=== PATIENT | female | born 1990 | race Caucasian/White ===

== ENCOUNTER 2019-05-29 15:53 | Inpatient (IN) | payer OTHER ==
[~2019-05-29] VITALS: Ht 157.5 cm; Wt 99.0 kg
[2019-05-29 16:16] VITALS: Ht 157.5 cm; Wt 99.0 kg
[2019-05-29 16:17] VITALS: BP 121/64; PULSE 87; RESP 20
[2019-05-29] MEDS ORDERED: PREN-93 PO (16:21)
[2019-05-29] MEDS: LACTATED RINGER'S 1,000 ML IV SCH ×2 (16:57→18:49)
--- NOTE | 2019-05-29 19:04 | TRIAGE ---
OB Triage Datetime Report Generated by CPN: 05/29/2019 19:04 Datetime: 05/29/2019 18:01 Maternal Assessment Level of Consciousness: Keenly Alert, Responsive DTR's/Clonus: DTRs 2+ Headache: Denies Blurred Vision: No Nausea/Vomiting: Denies RUQ Epigastric Pain: Denies Facial Edema: None Labor Evaluation Frequency: NONE Pattern: Normal: <= 5 Contractions in 10 Minutes Resting Tone [place]: Relaxed Heart Rate FHR Baseline Rate: 140 Monitor Mode: External US FHR Baseline Changes: No Baseline Change Variability: Moderate 6-25 bpm Accelerations: 15X15 Decelerations: None Category: Category I Pain Assessment Pain Scale: 3 Pain Presence: Constant Pain Type: Pressure Pain Location: Abdomen Pain Goal: 2 Datetime: 05/29/2019 16:58 Maternal Assessment Level of Consciousness: Keenly Alert, Responsive DTR's/Clonus: DTRs 2+ Headache: Denies Blurred Vision: No Nausea/Vomiting: Denies RUQ Epigastric Pain: Denies Facial Edema: None Labor Evaluation Frequency: NONE Pattern: Normal: <= 5 Contractions in 10 Minutes Resting Tone [place]: Relaxed Heart Rate FHR Baseline Rate: 150 Monitor Mode: External US FHR Baseline Changes: No Baseline Change Variability: Moderate 6-25 bpm Accelerations: 15X15 Decelerations: None Category: Category I Pain Assessment Pain Scale: 3 Pain Presence: Constant Pain Type: Pressure Pain Location: Abdomen Pain Goal: 1 Vaginal Exam Membrane Status: Intact Datetime: 05/29/2019 16:30 Maternal Assessment Level of Consciousness: Keenly Alert, Responsive DTR's/Clonus: DTRs 2+; No Clonus Headache: Denies Blurred Vision: No Respiratory Effort: Unlabored; Regular Rhythm; Equal Expansion Breath Sounds, Left: Clear and Equal Breath Sounds, Right: Clear and Equal Nausea/Vomiting: Denies RUQ Epigastric Pain: Denies Facial Edema: None Fall Risk Assessment History of Falling: (0) No Secondary Diagnosis: (0) No Ambulatory Aid: (0) Bedrest/Nurse Assist Gait: (0) Normal/Bedrest/Immobile Mental Status: (0) Oriented to Own Ability Datetime: 05/29/2019 16:08 Time of Arrival: 05/29/2019 15:50 EGA: 28.0 Arrived By: Ambulatory Arrived From: Home Chief Complaint: abd pain Movement: Decreased Contractions: Denies/Absent Rupture of Membranes: Denies Vaginal Bleeding: None Vaginal Discharge: Denies Recent Sexual Intercouse: Denies Abdominal Trauma: Not Applicable Patient Complaints: Contractions Provider Notified: dr galvin Initial Plan: efm,call dr galvin Datetime: 05/29/2019 16:07 Maternal Assessment Level of Consciousness: Keenly Alert, Responsive DTR's/Clonus: DTRs 2+ Headache: Denies Blurred Vision: No Nausea/Vomiting: Denies RUQ Epigastric Pain: Denies Facial Edema: None Labor Evaluation Frequency: none Pattern: Normal: <= 5 Contractions in 10 Minutes Resting Tone [place]: Relaxed Heart Rate FHR Baseline Rate: 150 Monitor Mode: External US FHR Baseline Changes: No Baseline Change Variability: Moderate 6-25 bpm Accelerations: 10X10 Decelerations: None Category: Category I Pain Assessment Pain Scale: 3 Pain Presence: Constant Pain Type: Pressure Pain Location: Abdomen Pain Goal: 1 Vaginal Exam Membrane Status: Intact Datetime: 05/29/2019 16:06 Maternal Assessment Level of Consciousness: Keenly Alert, Responsive DTR's/Clonus: DTRs 2+; No Clonus Headache: Denies Blurred Vision: No Respiratory Effort: Unlabored; Regular Rhythm; Equal Expansion Breath Sounds, Left: Clear and Equal Breath Sounds, Right: Clear and Equal Nausea/Vomiting: Denies RUQ Epigastric Pain: Denies Facial Edema: None Temperature Route: Axillary Fall Risk Assessment History of Falling: (0) No Secondary Diagnosis: (0) No Ambulatory Aid: (0) Bedrest/Nurse Assist IV Therapy: (0) No Gait: (0) Normal/Bedrest/Immobile Mental Status: (0) Oriented to Own Ability Fall Score: 0 Fall Risk Score Definition: No Risk: No action required
[2019-05-29] MEDS: CEFAZOLIN 2 GM/50 ML (PMX) 50 ML IVPB SCH (20:09)
[2019-05-29] MEDS ORDERED: CEFAZOLIN 2 GM/50 ML (PMX) 50 ML IVPB SCH (22:00)
[2019-05-30] MEDS: LACTATED RINGER'S 1,000 ML IV SCH ×2 (00:35→11:52)
[2019-05-30] MEDS: CEFAZOLIN 2 GM/50 ML (PMX) 50 ML IVPB SCH ×2 (04:04→11:52)
[2019-05-30] MEDS ORDERED: PRENATAL VITAMIN PO SCH (09:00)
--- NOTE | 2019-05-30 15:28 | PREOPHP ---
DATE OF ADMISSION: 05/29/2019 HISTORY OF PRESENT ILLNESS: This is a 29-year-old lady, 2, para 0, with 1 spontaneous aborti on, EDC 08/21/2019. This makes her 28 and 1/7 weeks , admitted to labor and delivery area be cause of lower abdominal pains and low back pains. She had care in my [place] office and th e care was uneventful. She has mild dysuria as well. PAST PERSONAL HISTORY: No history of diabetes, TB, asthma. ALLERGIES: NO ALLERGIES. SOCIAL HISTORY: Patient does not smoke. She does not drink. MEDICATIONS: She does not take any drugs except her iron and vitamins. GYNECOLOGICAL HISTORY: She had menarche at the age of 13, every 28 days interval, 3 to 4 days durati on, and moderate in amount. FAMILY HISTORY: Noncontributory. PAST SURGICAL HISTORY: She had heart surgery was when she was 2 years old. She had never had any pr oblems since then. REVIEW OF SYSTEMS: She had 1 spontaneous at 12 weeks. REVIEW OF SYSTEMS: CARDIOVASCULAR: No chest pain. RESPIRATORY: No cough. GASTROINTESTINAL: No diarrhea, no vomiting. GENITOURINARY: No dysuria. PHYSICAL EXAMINATION: GENERAL: Reveals a conscious, coherent lady and in no acute distress. VITAL SIGNS: Blood pressure 120/80, pulse rate 80 per minute, respirations 16 per minute. BREASTS, HEART AND LUNGS: Within normal limits. ABDOMEN: Soft, mildly tender on the hypogastric region and the heart tones normal. PELVIC: Revealed the cervix to be closed. EXTREMITIES: No pedal edema. ADMITTING DIAGNOSIS: A 29-1/7 weeks intrauterine , rule out urinary tract infection. The p atient had urine test and it shows that the urine was noted to be very concentrated right away. She had IV hydration and after IV hydration all the blood tests were sent like a CBC as well as well as C MP, UA, and C and S. The urine showed a few WBC but her WBC in the blood showed 13.2. So the patien t was restarted as mentioned on IV hydration and she was started on IV antibiotics and to have a repe at CBC the following day after observation. The plans were explained to the patient and she understo od everything totally. The risks, benefits, and alternatives were discussed with her as well. Dictated By: KIM SPRING/SAMMIE Conf#: [id number] [facility]#: [id number]
--- NOTE | 2019-05-30 17:26 | PN ---
DATE: 05/30/2019 TIME: 11:00 a.m. SUBJECTIVE: The patient feels better. No more pains. She has good urine output and no back tendern ess. OBJECTIVE VITAL SIGNS: She is afebrile. Vital signs stable. ABDOMEN: Soft. No tenderness noted. heart tones normal. EXTREMITIES: No cord tenderness. ASSESSMENT: A 28 and 2/7 weeks intrauterine with resolving urinary tract infection. She w ill be receiving the third dose of Ancef and then says she will be receiving the third dose of Ancef. The plans were explained to the patient. She will go home today. She was advised to drink a lot o f fluids. She was told to come back to the clinic in 1 week. She was counseled. She was instructed . Dictated By: KIM LUBIN MD NS/NTS Conf#: [id number] DID#: [id number] CC: KIM LUBIN MD;*End*
--- NOTE | 2019-05-31 01:55 | DS ---
DATE OF ADMISSION: 05/29/2019 DATE OF DISCHARGE: 05/30/2019 HISTORY OF PRESENT ILLNESS: See dictated history and physical. PHYSICAL EXAMINATION: See dictated history and physical. ADMITTING DIAGNOSIS: A 28 and 1/7 weeks intrauterine with urinary tract infection. HOSPITAL COURSE: The patient did well with IV hydration and IV antibiotics. The following day after admission, the patient felt good, no more pain and no complaint, so she was discharged home on gener al diet and activity was restricted. She was counseled. She was instructed. She was told to come b ack to the clinic in 1 week. FINAL DIAGNOSIS: A 28 and 2/7 weeks intrauterine with urinary tract infection and dehydrat ion. Dictated By: KIM SPRING/SAMMIE Conf#: [id number] DID#: [id number]
== END 2019-05-30 12:45 | disposition home or self-care (01) | DRG 833 ==
LOC: OBT 15:53 → L-D 15:53 → OBT 18:35 → L-D 18:35
PROVIDERS: ADMIT Obstetrics & Gynecology; ATTEND Obstetrics & Gynecology
DX: O23.43 Unspecified infection of urinary tract in pregnancy, third trimester (principal); Z3A.28 28 weeks gestation of pregnancy; E86.0 Dehydration
CPT/HCPCS: 76815; 76817; 76818; 80053; 81001; 85025; 87086; 96360; 96361; G0463; J0690; J7120

== ENCOUNTER 2019-07-07 14:22 | Outpatient (CLI) | payer OTHER ==
[~2019-07-07] VITALS: Ht 157.5 cm; Wt 106.9 kg
[~2019-07-07 14:22] MED LIST: PREN-93 PO
[2019-07-07 15:17] VITALS: Ht 157.5 cm; Wt 106.9 kg
[2019-07-07 15:18] VITALS: BP 116/64; PULSE 77
--- NOTE | 2019-07-07 22:43 | TRIAGE ---
OB Triage Datetime Report Generated by CPN: 07/07/2019 22:43 Datetime: 07/07/2019 19:34 Labor Evaluation Frequency: NONE Monitor Mode: External Resting Tone [place]: Relaxed Contraction Comments: [place] REMOVED Heart Rate FHR Baseline Rate: 135 Monitor Mode: External US Variability: Moderate 6-25 bpm Accelerations: 15X15 Decelerations: None Category: Category I Comments: US REMOVED Datetime: 07/07/2019 19:30 Assessment Type: Triage Maternal Assessment Level of Consciousness: Keenly Alert, Responsive DTR's/Clonus: DTRs 2+; No Clonus Headache: Denies Blurred Vision: No Respiratory Effort: Unlabored; Regular Rhythm; Equal Expansion Breath Sounds, Left: Clear and Equal Breath Sounds, Right: Clear and Equal Nausea/Vomiting: Denies RUQ Epigastric Pain: Denies Facial Edema: None Fall Risk Assessment History of Falling: (0) No Secondary Diagnosis: (0) No Ambulatory Aid: (0) Bedrest/Nurse Assist IV Therapy: (0) No Gait: (0) Normal/Bedrest/Immobile Mental Status: (0) Oriented to Own Ability Fall Score: 0 Fall Risk Score Definition: No Risk: No action required Datetime: 07/07/2019 18:40 Labor Evaluation Frequency: very irregular Quality: Mild Resting Tone [place]: Relaxed Monitor Mode: External US Variability: Moderate 6-25 bpm Accelerations: 15X15 Decelerations: None Category: Category I Datetime: 07/07/2019 17:56 Pain Assessment Comments: Pt reports back pain at 4/10 still remains. Datetime: 07/07/2019 16:04 Labor Evaluation Frequency: irregular Monitor Mode: External Resting Tone [place]: Relaxed Contraction Comments: pt reports UC's have diminished Heart Rate FHR Baseline Rate: 130 Monitor Mode: External US Variability: Moderate 6-25 bpm Accelerations: 15X15 Decelerations: None Category: Category I Datetime: 07/07/2019 15:54 Contraction Comments: patient asleep - awoken -she reports no UC's at this time Datetime: 07/07/2019 15:22 Vaginal Exam Dilatation (cms): 1.0 Effacement (%): 50 Station: -3 Exam By: S Chait Vaginal Bleeding: None Cervix, Consistency: Moderate Cervix, Position: Midposition Presentation 'A': Cephalic Datetime: 07/07/2019 15:13 Assessment Type: Triage Maternal Assessment Level of Consciousness: Keenly Alert, Responsive DTR's/Clonus: DTRs 2+; No Clonus Headache: Denies Blurred Vision: No Respiratory Effort: Unlabored; Regular Rhythm; Equal Expansion Breath Sounds, Left: Clear and Equal Breath Sounds, Right: Clear and Equal Nausea/Vomiting: Denies RUQ Epigastric Pain: Denies Lower Extremities Edema: Bilateral Lower Extremities Degree: 1+ Upper Extremities Edema: None Degree: None Facial Edema: None Fall Risk Assessment History of Falling: (0) No Secondary Diagnosis: (0) No Ambulatory Aid: (0) Bedrest/Nurse Assist IV Therapy: (0) No Gait: (0) Normal/Bedrest/Immobile Mental Status: (0) Oriented to Own Ability Fall Score: 0 Fall Risk Score Definition: No Risk: No action required Datetime: 07/07/2019 13:15 Time of Arrival: 07/07/2019 13:15 EGA: 35.0 Arrived By: Ambulatory Arrived From: Home Movement: Present Contractions: Occasional Rupture of Membranes: Denies Vaginal Bleeding: None Vaginal Discharge: Denies Recent Sexual Intercouse: Denies Abdominal Trauma: Not Applicable Patient Complaints: Contractions Time Provider Notified: 07/07/2019 15:55 Provider Notified: SALCEDA Datetime: 05/30/2019 12:41 Time of Arrival: 07/07/2019 13:15 EGA: 35.0 Arrived By: Ambulatory Arrived From: Office Chief Complaint: intermittant low pain and low abd cramping since last night - was 1/40% 2 days ag o in the clinic Movement: Present Contractions: Regular Vaginal Bleeding: None Time Provider Notified: 07/07/2019 15:55 Provider Notified: Salceda Datetime: 05/30/2019 12:29 Pattern: Normal: <= 5 Contractions in 10 Minutes Resting Tone [place]: Relaxed Contraction Comments: no uc Heart Rate FHR Baseline Rate: 145 Monitor Mode: External US Variability: Moderate 6-25 bpm Accelerations: 15X15 Decelerations: None Category: Category I Pain Presence: None/Denies Pain Type: N/A Datetime: 05/30/2019 07:19 Assessment Type: Admission Assessment Maternal Assessment Level of Consciousness: Keenly Alert, Responsive DTR's/Clonus: DTRs 2+; No Clonus Headache: Denies Blurred Vision: No Respiratory Effort: Unlabored; Regular Rhythm; Equal Expansion Breath Sounds, Left: Clear and Equal Breath Sounds, Right: Clear and Equal Nausea/Vomiting: Denies RUQ Epigastric Pain: Denies Facial Edema: None Fall Risk Assessment History of Falling: (0) No Secondary Diagnosis: (0) No Ambulatory Aid: (0) Bedrest/Nurse Assist IV Therapy: (20) Yes Gait: (0) Normal/Bedrest/Immobile Mental Status: (0) Oriented to Own Ability Fall Score: 20 Fall Risk Score Definition: No Risk: No action required Datetime: 05/30/2019 04:04 Stage of : Antepartum Temperature Route: Oral Datetime: 05/29/2019 22:48 Stage of : Antepartum Datetime: 05/29/2019 20:28 Stage of : Antepartum Labor Evaluation Frequency: 0 Monitor Mode: External Pattern: Normal: <= 5 Contractions in 10 Minutes Resting Tone [place]: Relaxed Heart Rate FHR Baseline Rate: 135 Monitor Mode: External US Variability: Moderate 6-25 bpm Accelerations: 15X15 Decelerations: None Category: Category I Pain Assessment Pain Scale: 0 Pain Presence: None/Denies Pain Type: N/A Pain Goal: 0 Datetime: 05/29/2019 20:00 Assessment Type: Admission Assessment Vaginal Bleeding: None Maternal Assessment Level of Consciousness: Keenly Alert, Responsive DTR's/Clonus: DTRs 2+; No Clonus Headache: Denies Blurred Vision: No Respiratory Effort: Unlabored; Regular Rhythm; Equal Expansion Breath Sounds, Left: Clear and Equal Breath Sounds, Right: Clear and Equal Nausea/Vomiting: Denies RUQ Epigastric Pain: Denies Facial Edema: None Fall Risk Assessment History of Falling: (0) No Secondary Diagnosis: (0) No Ambulatory Aid: (0) Bedrest/Nurse Assist IV Therapy: (20) Yes Gait: (0) Normal/Bedrest/Immobile Mental Status: (0) Oriented to Own Ability Fall Score: 20 Fall Risk Score Definition: No Risk: No action required Datetime: 05/29/2019 19:57 Stage of : Antepartum Temperature Route: Oral Datetime: 05/29/2019 18:35 Time of Arrival: 05/29/2019 18:35 EGA: 29.3 Arrived By: Ambulatory Arrived From: Triage Datetime: 05/29/2019 16:08 EGA: 29.3 Datetime: 05/29/2019 16:06 Fall Score: 0 Fall Risk Score Definition: No Risk: No action required
--- NOTE | 2019-07-08 19:28 | PN ---
Triage Information Date/Time Reason for visit: Abd/pelvic pain Weeks of Gestation 35 weeks /Para Diabetes: none Hypertention: none Objective Vital Signs Date Temp Pulse Resp B/P (MAP) Pulse Ox O2 O2 Flow FiO2 Time Delivery Rate 07/07/19 98.1 77 116/64 Room Air 15:18 (81) Heart Rate: 130's Heart Rate Comments Reactive Exam Cervix 1 cm Results/Medications Result Diagram: 07/07/19 1615 Disposition: Discharge Assessment/Plan No cervical change Follow up with Dr Dumont on 07/08/2019 TAMMY FAGAN MD Jul 08, 2019 19:28
== END 2019-07-07 20:40 | disposition home or self-care (01) ==
LOC: OBT 14:22 → L-D 14:24 → OBT 20:40
PROVIDERS: ATTEND Obstetrics & Gynecology
DX: O26.893 Other specified pregnancy related conditions, third trimester (principal); R10.2 Pelvic and perineal pain; Z3A.35 35 weeks gestation of pregnancy
CPT/HCPCS: 76815; 76818; 81001; 85025; 86850; 86870; 86900; 86901; 87086; Z7500; G0463

== ENCOUNTER 2019-07-28 16:35 | Outpatient (CLI) | payer OTHER ==
[~2019-07-28] VITALS: Ht 157.5 cm; Wt 109.9 kg
== END 2019-07-28 22:02 | disposition home or self-care (01) ==
LOC: OBT 16:35 → L-D 16:37 → OBT 22:02
PROVIDERS: ATTEND Obstetrics & Gynecology
DX: O62.9 Abnormality of forces of labor, unspecified (principal); Z3A.36 36 weeks gestation of pregnancy
CPT/HCPCS: 76815; 76818; 81001; Z7500; G0463